=== PATIENT | male | born 1965 | race Caucasian/White ===

== ENCOUNTER 2017-12-23 17:14 | Emergency (ER) | payer SELFPAY | END 2017-12-23 18:07 | disposition home or self-care (01) | LOC: ERS 17:14 | DX: K03.81 Cracked tooth (principal); K02.9 Dental caries, unspecified; F17.210 Nicotine dependence, cigarettes, uncomplicated; Z71.6 Tobacco abuse counseling; Z79.82 Long term (current) use of aspirin | CPT/HCPCS: 99406 ==

== ENCOUNTER 2020-08-29 12:34 | Emergency (ER) | payer SELFPAY ==
[2020-08-29] MEDS ORDERED: Boostrix 0.5 ML (Tdap) VIAL ONE (13:34)
--- NOTE | 2020-08-29 13:47 | RAD ---
LEFT HAND: 08/29/20 Total of five views. HISTORY: Foreign body. History of a wood splinter. Wood foreign bodies may not be apparent on plain film. No evidence of acute osseous abnormality. No radiopaque foreign body identified. Mild fullness in the thenar eminence. IMPRESSION: No radiopaque foreign body. Wooden foreign bodies may not be apparent on plain film. POS: [id number]
== END 2020-08-29 13:40 | disposition home or self-care (01) ==
LOC: ERS 12:34
DX: S61.432A Puncture wound without foreign body of left hand, initial encounter (principal); Z87.891 Personal history of nicotine dependence; W45.8XXA Other foreign body or object entering through skin, initial encounter
CPT/HCPCS: 90471; 90715